=== PATIENT | female | born 1960 | race Caucasian/White ===

== ENCOUNTER 2019-03-31 06:13 | Day surgery (SDC) | payer OTHER ==
[2019-03-31] MEDS ORDERED: MIDAZOLAM 1 MG/ML 2 ML INJ ×2 (08:51)
[2019-03-31] MEDS ORDERED: FENTAnyl 50 MCG/ML VIAL (08:51)
== END 2019-03-31 10:09 | disposition home or self-care (01) ==
LOC: GIL 06:13
DX: Z12.11 Encounter for screening for malignant neoplasm of colon (principal); K64.8 Other hemorrhoids; Z86.010 Personal history of colon polyps; I10 Essential (primary) hypertension
CPT/HCPCS: 45378